=== PATIENT | male | born 1995 | race African-American/Black ===

== ENCOUNTER 2021-08-06 15:38 | Outpatient (CLI) | payer OTHER ==
[2021-08-06 16:22] VITALS: BP 125/80
--- NOTE | 2021-08-06 16:22 | SLEEP CARE CONSULTATION ---
Information from patient questionnaire entered by Riley Neely MA. I have reviewed and concur with the information entered by Riley Neely MA. This document represents the service I personally performed and the decisions made by , Ritika Timmons ARNP. History of Present Illness Service Date and Time: 08/06/2021 1538 Reason for Visit: New patient, Previously diagnosed sleep apnea Chief Complaint: reports: Unrefreshed sleep, Snoring, Excessive daytime s leepiness, Observed pauses in breathing, Fatigue, Frequent awakenings at night Date of Onset: 4-5 years Usual bedtime: 2 AM Time it takes to fall asleep: 20 minutes Snores at night: Yes Observed to quit breathing while asleep: Yes Sleeps alone due to snoring: Yes Number of times waking at night: 4 or more Reasons for waking at night: reports: Choking, Gasping for air, Bathroom Toss, Turn, or Twitch while sleeping: Yes Recalls having dreams: No Usually gets out of bed at: 1000; weekends later Feels refreshed in the morning: No Morning headache: Yes (2 times a month, last about 10 mins) Sleepy or fatigued during the day: Yes Ever fallen asleep while driving: Yes (drowsy driving) Takes day naps: No Dreams during day naps: No Prior sleep studies: Yes Year and Where: 2016 [facility] Type of Sleep Study: Polysomnography Additional HPI information: RAYMON ANDRADE was previously diagnosed 4-5 years ago with sleep apnea, AHI unknown. He comes in today for further evaluation because he was never set up on therapy for his sleep apnea. He states they talked about taking his tonsils out but this never happened. Patient main complaints today include: excessive daytime sleepiness, fatigue, snoring and unrefreshed sleep. He states he is tired all the time. He has had times he has woken up choking and gasping for air. He occasionally gets morning headaches. He states his memory is very bad and he has issues with his concentration. 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 Patient is and lives in . Have you smoked in the past 12 months: Yes (smoked for 8 months ) Years of smokin (only 8 months) Quit date: December 2018 Alcohol use: Yes Alcohol amount and frequency: 4 drinks a month Caffeine use: Yes Caffeine amount and frequency: 1 cup tea every day Family History Family history of sleep disordered breathing: No Allergies and Home Medications Drug allergies reviewed: Yes (NKDA) Home medication list reviewed: Yes (no daily medications or supplements) Review of Systems Weight gain over past 5 years: 50 Cardiovascular: denies: high blood pressure Gastrointestinal: denies: heartburn Psychiatric: denies: anxiety, depression Ear/Nose/Throat: reports: wisdom teeth removed. denies: tonsillectomy Immunologic: reports: allergies to food or environment (seasonal) Physical Exam Vital signs obtained and entered by: Gracy NEELY CMA [facility] Blood Pressure: 125/80 (LEFT) Cuff size: wrist Heart Rate: 80 O2 Saturation: 98 (WITH MASK) Height: 5 ft 4 in Weight: 357 lb 2.382 oz (WITH CLOTHES) Body Mass Index: 61.2 BMI Classification: Morbidly Obese Nostrils: patent to airflow Mouth and throat: narrow oropharynx Soft palate: long Hard palate: normal Uvula: long Uvula visualization: 50% Mallampati Class II Tongue: enlarged in size with teeth falcon on lateral edges Tonsils: 3+/kissing Neck: normal w/o lymphadenopathy or thyromegaly Heart: regular rate and rhythm Lungs: clear bilaterally Impression and Plan 1. Suspected Obstructive Sleep Apnea-Hypopnea Syndrome, as previously diagnosed and as suggested by a history of loud and irregular snoring, observed cessation of breath while asleep, gasping or choking in sleep, morning headache, frequent awakening during the night, unrefreshed sleep, cognitive impairment, and excessive daytime sleepiness. Narrow oropharynx and obesity are common predisposing factors for obstructive sleep apnea-hypopnea syndrome. I recommend proceeding to polysomnography to confirm the diagnosis and to assess severity. If the patient has significant sleep disordered breathing, a manual CPAP titration study will also be performed to find the optimal treatment pressure. I informed the patient of what the sleep studies involve and after some discussion, obtained agreement to proceed. The pathophysiology of obstructive sleep apnea-hypopnea syndrome was discussed with the patient and health risks of cardiovascular and cerebrovascular disease if not treated. Risks of drowsy driving discussed in detail and patient advised to avoid long distance driving and to hook puller at the first sign of drowsiness. Patient agreed to plan. * Schedule polysomnography +- manual CPAP titration study and return in 1-2 weeks after the study to discuss result and initiate therapy. * Avoid long distance driving or driving when feeling sleepy. * Avoid alcohol, sedative and muscle relaxant around bedtime. * Attempt to lose weight. * Review instructions provided by trained office staff on how to prepare for the sleep study. * Return for follow-up after sleep study completed. Counseling Topics: Weight loss health impact Visit Type: In Office Time Spent with Patient (minutes): 30 Provider Statement: I spent 100% of the Face to Face Visit with the patient with greater than 50% spent counseling the patient and coordination of care.
== END 2021-08-06 15:39 | disposition home or self-care (01) ==
LOC: SC 15:38
PROVIDERS: ATTEND Nurse Practitioner Family
DX: G47.33 Obstructive sleep apnea (adult) (pediatric) (principal); E66.01 Morbid (severe) obesity due to excess calories; Z68.44 Body mass index [BMI] 60.0-69.9, adult
CPT/HCPCS: 99203; 99212

== ENCOUNTER 2021-08-26 14:51 | Outpatient (CLI) | payer OTHER | END 2021-08-26 14:52 | disposition home or self-care (01) | LOC: SC 14:51 | PROVIDERS: ATTEND Nurse Practitioner Family | DX: G47.33 Obstructive sleep apnea (adult) (pediatric) (principal); R09.02 Hypoxemia | CPT/HCPCS: 95806 ==